=== PATIENT | male | born 1980 | race Caucasian/White ===

== ENCOUNTER 2018-01-12 12:22 | Emergency (ER) | payer SELFPAY ==
--- NOTE | 2018-01-12 13:42 | CT ---
NONCONTRAST HEAD CT: Date: 01/12/18 HISTORY: Nausea and vomiting after working outside. Hit head yesterday with masking machine. COMPARISON: 10/12/16. TECHNIQUE: Noncontrast head CT is performed from skull base to skull vertex. FINDINGS: No parenchymal hemorrhage. No extra-axial hematoma. No midline shift. Basilar cisterns are patent. Br ain volume, age-appropriate. Cortical purdy-white matter differentiation preserved. Ventricles and sul ci are patent and symmetric. Calvarium is intact. Adequate aeration of the sinuses and mastoid air ce lls. IMPRESSION: No acute intracranial process. POS: GEN
== END 2018-01-12 13:40 | disposition left against medical advice (07) ==
LOC: ERS 12:22
DX: Z53.21 Procedure and treatment not carried out due to patient leaving prior to being seen by health care provider (principal)
CPT/HCPCS: 70450

== ENCOUNTER 2018-11-17 08:54 | Inpatient (IN) | payer SELFPAY ==
[2018-11-17] MEDS ORDERED: Ondansetron PF 4 MG/2 ML Vial ONE (09:18)
[2018-11-17 09:25] LABS: #Eosinphils 0.1 thou/uL (0.0-0.7); #Monocytes 1.1 thou/uL (0.11-0.59); #Neutrophils 15.7 thou/uL (1.40-6.50); %Basophils 0.2 % (0.0-1.0); %Eosinophils 0.5 % (0.0-10.0); %Lymphocytes 10.6 % (21.0-51.0); %Monocytes 5.7 % (0.0-10.0); %Neutrophils 83.1 % (42.0-75.0); Hemoglobin 16.9 g/dL (14.0-18.0); Mean Corpuscular HGB CONC 34.1 g/dL (32.0-36.0); Mean Corpuscular Hemoglobin 31.2 pg (27.0-31.0); Mean Corpuscular Volume 91.4 fL (78.0-98.0); Mean Platelet Volume 8.2 fL (7.4-10.4); Platelet Count 254 thou/uL (130-400); RBC Distribution Width 12.7 % (11.5-14.5); Red Blood Cell (RBC) Count 5.41 mill/uL (4.70-6.10); White Blood Cell (WBC) Count 18.9 thou/uL (4.8-10.8)
[2018-11-17 09:51] LABS: ALT (SGPT) 12 U/L (8-55); AST (SGOT) 14 U/L (5-34); Albumin 5.6 g/dL (3.5-5.0); Alkaline Phosphatase 128 U/L (40-150); Anion Gap 21 mmol/L (10-20); BUN (Urea Nitrogen) 30 mg/dL (8.9-20.6); Bilirubin, Total 1.1 mg/dL (0.2-1.2); CK (CPK) 253 U/L (30-200); Calc. Creatinine Clearance 0 mL/min (70-130); Calcium 10.5 mg/dL (7.8-10.44); Carbon Dioxide 20 mmol/L (22-29); Chloride 97 mmol/L (98-107); Estimated GFR-MDRD 24; Globulin 3.8 g/dL (2.4-3.5); Glucose 117 mg/dL (70-105); Lipase 10 U/L (8-78); Potassium 3.9 mmol/L (3.5-5.1); Protein, Total 9.4 g/dL (6.0-8.3); Sodium 134 mmol/L (136-145)
[2018-11-17 10:26] LABS: Bilirubin Moderate (Negative); Blood, Urine Negative (Negative); Glucose, Urine (Dipstick) 100 mg/dL (Negative); Leukocyte Negative (Negative); Nitrite Negative (Negative); Protein, Urine (Dipstick) 100 mg/dL (Neg-Trace); Urobilinogen 0.2 mg/dL (Less than 2)
[2018-11-17 10:28] LABS: Clarity Clear (Clear)
[2018-11-17 10:32] LABS: Other Microscopic Description Less than 2 mL rec'd
[2018-11-17 10:33] LABS: Bacteria/HPF None Seen HPF (None Seen); RBC/HPF None Seen HPF (0-3); Squamous Epithelial 0-3 HPF (0-3); WBC/HPF 0-3 HPF (0-3)
[2018-11-17 10:34] LABS: Transitional Epithelial 0-3 HPF (None Seen)
[2018-11-17] MEDS ORDERED: Promethazine 25 MG TAB PO PRN (10:40)
[2018-11-17] MEDS ORDERED: Senokot S 8.6-50 MG TAB PO PRN ×2 (10:40)
[2018-11-17] MEDS ORDERED: Ondansetron PF 4 MG/2 ML Vial IVP PRN (10:40)
[2018-11-17] MEDS ORDERED: Calcium Carbonate 500 MG ChewTAB PO PRN (10:40)
[2018-11-17] MEDS ORDERED: Loratadine 10 MG TAB PO PRN (10:40)
[2018-11-17] MEDS ORDERED: hydrALAZINE 20 MG/ML VIAL SLOW IVP PRN (10:40)
[2018-11-17] MEDS ORDERED: Bisacodyl 5 MG TAB PO PRN ×2 (10:40)
[2018-11-17] MEDS ORDERED: cloNIDine 0.1 MG TAB PO PRN (10:40)
[2018-11-17] MEDS ORDERED: Sodium Chloride 0.65% Nasal 44 ML BOT EA NARE PRN (10:40)
[2018-11-17] MEDS ORDERED: Nicotine 14 MG PATCH ONE (10:56)
[2018-11-17 11:13] LABS: Amphetamine Not Detected (NotDetected); Barbiturates Screen Not Detected (NotDetected); Benzodiazepine Screen Not Detected (NotDetected); Cocaine Metabolite Screen Not Detected (NotDetected); Medtox Control Line Valid? VALID (VALID); Medtox Reader # READER 4; Methadone Not Detected (NotDetected); Methamphetamine Not Detected (NotDetected); Opiate Screen Not Detected (NotDetected); Oxycodone Screen Not Detected (NotDetected); Phencyclidine (PCP) Not Detected (NotDetected); THC/Cannabinoid Screen Detected (NotDetected); Tricyclic Screen Not Detected (NotDetected)
--- NOTE | 2018-11-17 11:55 | ULT ---
US Renal Bilateral STANDARD HISTORY: Acute renal insufficiency. COMPARISON: None. FINDINGS: Real-time imaging of the right and left kidneys were. The right kidney measures 10.6 cm, th e left kidney 11.3 cm in size. There is no evidence of cyst mass or obstruction. No cortical thinning. The bladder is incompletely distended at the time this exam. IMPRESSION: Unremarkable renal ultrasound.
[2018-11-17] MEDS: Sodium Chloride 0.9% 1,000 ML IV SCH ×2 (13:37→23:33)
[2018-11-17] MEDS ORDERED: Acetaminophen 325 MG TAB ONE (13:41)
[2018-11-17] MEDS: Acetaminophen 325 MG TAB PO PRN ×3 (13:41→20:48)
--- NOTE | 2018-11-17 14:32 | HP ---
PRIMARY CARE PHYSICIAN: None. CHIEF COMPLAINT: Vomiting, abdominal cramps, and generalized weakness. HISTORY OF PRESENTING ILLNESS: Mr. Alonso is a 37-year-old male with past medical history without any significant chronic diseases, who presented to the ER with above-mentioned complaints. History is mainly obtained by the patient himself, and electronic medical records have been reviewed. Mr. 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 Normally, he works all days and does not eat or drink much. He was doing the same yesterday also, and by the end of the day, he started to feel sick and nauseated and then started throwing out. He went home around 5 p.m. and threw up a whole lot more in the night. He felt hot and tried some intermittent cooling at the house as well. He reports that his symptoms have happened about 4 years ago about the same symptoms. He knew better this time and ate a banana, some pickle, and salt last night and went to sleep. When he woke up this morning, he was still feeling really bad and went back to work, but then promptly started to vomit again. He noticed that his bed was awfully hot. He reported sweating up until last night, but since then he has not noticed any excessive sweating. When prompted, he did say that he has not urinated more than 3 or 4 times yesterday and none this morning and noticed that his urine was awfully dark and maybe with some blood in it. He denies any recent illnesses, but later added that he had episodes of abdominal cramping and vomiting 4 days ago after eating some meat that he had left outside overnight. All of his symptoms resolved in less than 12 hours, and he had good normal 3 or 4 days before yesterday. He denies any recent drug abuse or alcohol use. Upon presentation to the emergency room, his blood pressure was 125/72, pulse of 79, his temperature was 98.1, and oxygen saturation 99% on room air. His initial workup revealed acute renal insufficiency with a creatinine of 3.00, BUN 30 with baseline creatinine normal. He was also found to have anion gap metabolic acidosis and a mild rhabdomyolysis with a CK of 253. He also has elevated WBCs at 18.9 with 83% neutrophils. His urinalysis showed proteinuria, glucosuria, mild range; some bilirubinuria; and some casts, but no bacteria, blood, or wbc's. Urine drug screen was positive only for cannabinoids. He was started on IV fluids and is now being admitted for acute renal insufficiency, likely secondary to heat exhaustion and dehydration. Interestingly, when taken a more thorough history, he reported that he has been having significant pain in his teeth and has taken an entire bottle of Advil in the 20 hours preceding his symptoms. He also noticed that he most likely has abscess of multiple teeth as he can feel the swelling and the pain, but he has no insurance to go to a dentist. PAST MEDICAL HISTORY: History of renal failure due to dehydration, heat exhaustion in 2014. PAST SURGICAL HISTORY: None, reviewed with the patient. PSYCHIATRIC HISTORY: He reports history of anxiety and depression. SOCIAL HISTORY: He is currently smoking tobacco a pack a day and drinks socially. He binge drinks once or twice a month. He currently uses marijuana, but he has used all sorts of drugs when he was 16 or 17 years of age. He does report that his last methamphetamine use was about a year ago. FAMILY HISTORY: His mother had COPD. His great grand aunt had some sort of heart disease. He is not familiar with his dad side. He denies any history of kidney problems running in his family. REVIEW OF SYSTEMS: A 14-point review of system is done and is negative except for those mentioned in history and physical. LABORATORY DATA: CBC shows WBCs 18.9, 83% neutrophils, otherwise unremarkable. Serum chemistry shows sodium 134, chloride 97, bicarb 20, anion gap 21, BUN 30, creatinine 3.0, blood sugar 117, calcium 10.5. Lipase is normal. Creatine kinase 253. Liver enzymes normal. Urinalysis as per HPI. PHYSICAL EXAMINATION: VITAL SIGNS: Most recent vital signs; blood pressure 118/64, pulse of 60, respirations 14, temperature 97.5, saturating 98% on room air. GENERAL: No acute distress. Awake, alert, and oriented x3. 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 His mucous membranes appear dry. Pupils are equal and reactive to light and accommodation. Head is normocephalic and atraumatic. NECK: Supple without any lymphadenopathy, JVD, or bruit. CHEST: Clear to auscultation without any wheezing, rales, or rhonchi. HEART: Rhythm is regular without any murmurs, rubs, or gallops. ABDOMEN: Soft, nontender, nondistended with positive bowel sounds. EXTREMITIES: Free of any cyanosis, clubbing, or edema. NEUROLOGICAL: Nonfocal. SKIN: Free of any rashes or bruises. Feels warm and dry to touch. PSYCHIATRIC: Normal affect. IMPRESSION AND PLAN: 1. Acute renal insufficiency. This is a combination of extreme dehydration along with NSAIDs. The patient has been strictly educated about the use of NSAIDs, and he is to abstain from it for an unforeseeable future. This is his 2nd or 3rd episode of acute renal failure, so we will go ahead and obtain a renal ultrasound. Nephrology has been consulted by the emergency room physician, and we will follow the recommendations. Urinalysis does have trace protein and glucose, and he has mild hyperglycemia. We will go ahead and rule out diabetes by checking a hemoglobin A1c. He denies any family history or personal history of same. We will avoid any nephrotoxic medications and follow the renal function serially. 2. Anion gap metabolic acidosis. This is secondary to acute renal insufficiency. Once again, start him on generous IV fluids and follow the labs carefully. No other cause is apparent. 3. Mild hyponatremia with hypochloremia. Once again, this is secondary to dehydration. 4. Rhabdomyolysis, mild. Continue generous IV fluids and recheck in the morning. 5. Leukocytosis, most likely systemic inflammatory response syndrome due to noninfectious causes. We will recheck in the morning. No evidence to suggest infection at this time. He did have what sounds like a gastroenteritis bout, but that was about 4 days ago. 6. Drug abuse. The patient currently is abusing marijuana, but he reports abstinence from all the other drugs of abuse. 7. Tobacco abuse. We will add nicotine patch and the patient has been counseled. DISPOSITION: Mr. Alonso will be admitted to medical floor for acute renal failure, which is multifactorial in nature. Estimated length of stay at this time is 2 to 3 midnights. Further management will depend upon his clinical course. Job ID: [id number]
[2018-11-17 14:54] LABS: Hemoglobin A1c 4.9 % (4.0-6.0)
[2018-11-17 16:10] VITALS: BMI 24.0
[2018-11-17 20:18] LABS: Creatinine, Urine 221.77 mg/dL (63-166)
[2018-11-17] MEDS: Amoxicillin/Potassium Clav 875 MG TAB PO SCH (20:48)
--- NOTE | 2018-11-17 20:53 | CON ---
DATE OF CONSULTATION: 11/17/2018 CONSULTING PHYSICIAN: Jesusita Cheema MD REASON FOR CONSULT: Acute kidney injury. REASON FOR ADMISSION: Vomiting and possibly heat exhaustion. HISTORY OF PRESENT ILLNESS: A 37-year-old male with history of acute kidney injury in the past from heat exhaustion and NSAID use who came to the hospital with not feeling well, generalized weakness, vomiting. He was working out in the heat a lot and was feeling bad with same kind of symptoms that he had in the past. Also had a few episodes of vomiting and presented to the ER and was found to have elevated creatinine. Nephrology was consulted. The patient denies any back pain or chest pain. He has been taking a few pills of NSAIDs also lately for his toothache. No chest pain or palpitation. PAST MEDICAL HISTORY: Positive for acute kidney injury and heat exhaustion. PAST SURGICAL HISTORY: None. HOME MEDICATIONS: Advil. ALLERGIES: NO KNOWN DRUG ALLERGIES. SOCIAL HISTORY: Smoking history is present and drinks socially and binge drinking . FAMILY HISTORY: Positive for COPD. REVIEW OF SYSTEMS: CONSTITUTIONAL: Negative for weight loss or gain, ability to conduct usual activities. SKIN: Negative for rash, itching. EYES: Negative for double vision, pain. ENT/MOUTH: Negative for nose bleeding, neck stiffness, pain, tenderness. CARDIOVASCULAR: Negative for palpitations, dyspnea on exertion, orthopnea. RESPIRATORY: Negative for shortness of breath, wheezing, cough, hemoptysis, fever or night sweats. GASTROINTESTINAL: Negative for poor appetite, abdominal pain, heartburn, nausea, vomiting, constipation, or diarrhea. GENITOURINARY: Negative for urgency, frequency, dysuria, nocturia. MUSCULOSKELETAL: Negative for pain, swelling. NEUROLOGIC/PSYCHIATRIC: Negative for anxiety, depression. ALLERGY/IMMUNOLOGIC: Negative for skin rash, bleeding tendency. Rest are negative review of systems. PHYSICAL EXAMINATION: GENERAL: This is a well-built male, in no apparent distress. VITAL SIGNS: Temperature 97.8, pulse . HEENT: Atraumatic, normocephalic. Oral mucosa is moist. NECK: Supple. CV: S1, S2 heard. Rate and rhythm regular. RESPIRATORY: Clear. GI: Abdomen is soft. MUSCULOSKELETAL: 1+ edema. DERMATOLOGIC: No skin rash. NEUROLOGIC: Alert and awake. PSYCHIATRIC: Normal mood and affect. LABORATORY DATA: Hemoglobin is 16.9, potassium is 3.9, BUN is 30, creatinine is 3.7. ASSESSMENT AND PLAN: 1. Acute kidney injury on chronic kidney disease stage 3, most likely from volume depletion. Renal ultrasound unremarkable. We will check for proteinuria and monitor. 2. Continue IV fluids. 3. Metabolic acidosis, high anion gap, most likely from renal disease. Continue hydration. We will monitor. 4. Mild hyponatremia. 5. Hemoconcentration. Continue IV fluids. 6. Mild proteinuria. We will check urine protein to creatinine ratio. 7. Substance abuse, counseled. 8. History of NSAIDs use, counseled to avoid using long-term use of NSAIDs and also adverse effect on renal function. 9. Avoid nephrotoxins. Continue hydration. Monitor labs. We will continue to follow. Thank you for the consult. Job ID: [id number]
[2018-11-17] MEDS ORDERED: Famotidine/PF 20 mg/2ml Vial SLOW IVP SCH (21:00)
[2018-11-17] MEDS: Heparin 5,000 UNITS/ML VIAL SC SCH (21:09)
[2018-11-18] MEDS: Acetaminophen 325 MG TAB PO PRN (02:24)
[2018-11-18] MEDS: Sodium Chloride 0.9% 1,000 ML IV SCH ×3 (02:34→11:40)
[2018-11-18 06:00] LABS: #Eosinphils 0.1 thou/uL (0.0-0.7); #Monocytes 1.1 thou/uL (0.11-0.59); #Neutrophils 10.9 thou/uL (1.40-6.50); %Basophils 0.3 % (0.0-1.0); %Eosinophils 0.5 % (0.0-10.0); %Lymphocytes 13.9 % (21.0-51.0); %Neutrophils 77.4 % (42.0-75.0); Hemoglobin 13.7 g/dL (14.0-18.0); Mean Corpuscular HGB CONC 31.2 g/dL (32.0-36.0); Mean Corpuscular Hemoglobin 29.5 pg (27.0-31.0); Mean Corpuscular Volume 94.5 fL (78.0-98.0); Mean Platelet Volume 8.7 fL (7.4-10.4); Platelet Count 211 thou/uL (130-400); RBC Distribution Width 12.6 % (11.5-14.5); Red Blood Cell (RBC) Count 4.65 mill/uL (4.70-6.10); White Blood Cell (WBC) Count 14.1 thou/uL (4.8-10.8)
[2018-11-18 06:23] LABS: Anion Gap 11 mmol/L (10-20); BUN (Urea Nitrogen) 15 mg/dL (8.9-20.6); Calc. Creatinine Clearance 121 mL/min (70-130); Calcium 9.1 mg/dL (7.8-10.44); Carbon Dioxide 24 mmol/L (22-29); Chloride 105 mmol/L (98-107); Estimated GFR-MDRD Greater than 90; Glucose 96 mg/dL (70-105); Potassium 4.1 mmol/L (3.5-5.1); Sodium 136 mmol/L (136-145)
[2018-11-18] MEDS: Heparin 5,000 UNITS/ML VIAL SC SCH (08:19)
[2018-11-18] MEDS: Amoxicillin/Potassium Clav 875 MG TAB PO SCH (08:19)
--- NOTE | 2018-11-18 13:25 | PRG ---
DATE OF SERVICE: 11/18/2018 SUBJECTIVE: Patient was seen and examined at bedside and overnight events noted. Patient denies any shortness of breath or chest pain or palpitation. No history of nausea or vomiting or diarrhea or fever or chills or cramps. OBJECTIVE: GENERAL: This is a well-built male, in no apparent distress. VITAL SIGNS: Temperature 97. Heart rate 50. Respiratory rate 16. Blood pressure 135/82. HEENT: Atraumatic, normocephalic. Oral mucosa is moist NECK: Supple. CARDIOVASCULAR: S1, S2 heard. Rate and rhythm regular. RESPIRATORY: Clear to auscultation. GASTROINTESTINAL: Abdomen is soft. MUSCULOSKELETAL: No tenderness. No edema. DERMATOLOGIC: No skin rash. NEUROLOGIC: Alert and awake and oriented X3. No focal neurologic deficits. Moving all the extremities. PSYCHIATRIC: Mood and affect normal. LABORATORY DATA: Potassium is 4.1, BUN is 15, and creatinine 0.9, ASSESSMENT AND PLAN: 1. Acute kidney injury, much better. 2. Hypovolemia. 3. Acidosis. 4. Hemoconcentration. 5. Substance abuse, counselled. 6. History of NSAID use. No significant proteinuria. 7. Labs are much better. Job ID: [id number]
[2018-11-18 15:36] VITALS: BP 134/78; TEMP 97.8
[2018-11-18] MEDS ORDERED: Famotidine/PF 20 mg/2ml Vial SLOW IVP SCH (21:00)
--- NOTE | 2018-11-19 04:17 | DIS ---
DATE OF ADMISSION: 11/17/2018 DATE OF DISCHARGE: 11/18/2018 CONSULTANTS: Dr. Rojas in Nephrology Service. FINAL DIAGNOSES AT THE TIME OF DISCHARGE: 1. Acute renal failure, prerenal, resolved. 2. Anion gap metabolic acidosis, resolved. 3. Mild hyponatremia and hypochloremia, improved. 4. Rhabdomyolysis, mild, improved. 5. Leukocytosis, improved. 6. Drug abuse positive for marijuana. 7. Dental abscesses, started on antibiotic and recommended visit with a dentist. HOSPITAL COURSE: The patient is a 37-year-old male with past medical history without any significant chronic diseases, who presented to the ER with vomiting, abdominal cramps, and generalized weakness. 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 He was not drinking much fluids, that he did not urinate much after that time. In the emergency room, his blood pressure was 125/72, pulse was 79, temperature is 98.1, and oxygen saturation was 99% on room air. His blood work showed a creatinine of 3.0, BUN was 30. He was in anion gap metabolic acidosis and mild rhabdomyolysis with CK of 253. His white count was up to 18.9 with 83% of neutrophils. Urinalysis showed proteinuria, glycosuria, mild range, some bilirubinuria and some casts, but no bacteria, blood, or wbc's. Urine drug screen was positive for cannabinoids. He was started on IV fluids and got admitted to the hospital with diagnosis of acute renal insufficiency secondary to heat exhaustion and dehydration. The patient was seen by Dr. Rojas for Nephrology evaluation and he agreed that most likely this is prerenal and this is going to get better with IV fluids and rest and this is what happened with IV fluids. His creatinine went back to normal range. He started feeling significantly better. His metabolic acidosis is gone. All his chemistry is within normal limits. His hemoglobin A1c came back at 4.9, glucose is 96, creatinine is down to 0.93 and BUN down to 15. His white count is down to 14.1. He is able to tolerate food without any problems. He is able to ambulate. He is discharged home with recommendation to stay mostly inside and avoid exposure to high temperature and drink plenty of fluids while outside. He is going to continue his regular diet. ACTIVITIES: As tolerated. MEDICATIONS AT THE TIME OF DISCHARGE: Augmentin 875 mg twice a day for additional 10 days, this is for his dental abscesses. He needs to go to the dentist to get this taken care of. He is discharged in good condition. He will have to follow up with primary doctor in a week and the discharge time is less than 30 minutes. Job ID: [id number]
== END 2018-11-18 16:25 | disposition home or self-care (01) | DRG 683 ==
LOC: ERS 08:54 → ERHOLD 11:09 → SURG A 14:36
PROVIDERS: ADMIT Internal Medicine; ATTEND Internal Medicine
DX: N17.9 Acute kidney failure, unspecified (principal); E87.2 Acidosis; M62.82 Rhabdomyolysis; E87.1 Hypo-osmolality and hyponatremia; E86.0 Dehydration; T67.5XXA Heat exhaustion, unspecified, initial encounter; F17.210 Nicotine dependence, cigarettes, uncomplicated; E87.8 Other disorders of electrolyte and fluid balance, not elsewhere classified; D72.829 Elevated white blood cell count, unspecified; F12.10 Cannabis abuse, uncomplicated; N18.3 Chronic kidney disease, stage 3 (moderate); F41.9 Anxiety disorder, unspecified; F32.9 Major depressive disorder, single episode, unspecified; E86.1 Hypovolemia; K04.7 Periapical abscess without sinus
CPT/HCPCS: 36415; 76770; 80048; 80053; 80306; 81003; 81015; 82550; 82570; 83036; 83690; 84156; 85025; J1644; J2405; S0028

== ENCOUNTER 2019-05-02 21:59 | Emergency (ER) | payer SELFPAY ==
[2019-05-02] MEDS ORDERED: HYDROcodone/Acetaminophen 5/325 mg Tablet ONE (23:21)
== END 2019-05-02 23:30 | disposition home or self-care (01) ==
LOC: ERS 21:59
DX: K04.7 Periapical abscess without sinus (principal); K03.81 Cracked tooth; K02.9 Dental caries, unspecified; F41.9 Anxiety disorder, unspecified; F32.9 Major depressive disorder, single episode, unspecified; F17.210 Nicotine dependence, cigarettes, uncomplicated
CPT/HCPCS: 99282

== ENCOUNTER 2020-09-04 11:12 | Inpatient (IN) | payer SELFPAY ==
[2020-09-04] MEDS ORDERED: Promethazine HCl 25 MG/ML VIAL ONE (12:06)
[2020-09-04 12:18] LABS: #Lymphocytes 2.4 thou/uL (1.20-3.40); #Monocytes 1.1 thou/uL (0.11-0.59); #Neutrophils 15.1 thou/uL (1.40-6.50); %Basophils 0.1 % (0.0-1.0); %Eosinophils 0.2 % (0.0-10.0); %Lymphocytes 12.9 % (21.0-51.0); %Monocytes 5.7 % (0.0-10.0); %Neutrophils 81.2 % (42.0-75.0); Hemoglobin 17.7 g/dL (14.0-18.0); Mean Corpuscular HGB CONC 33.8 g/dL (32.0-36.0); Mean Corpuscular Hemoglobin 30.5 pg (27.0-31.0); Mean Corpuscular Volume 90.1 fL (78.0-98.0); Mean Platelet Volume 8.7 fL (7.4-10.4); Platelet Count 304 thou/uL (130-400); RBC Distribution Width 13.2 % (11.5-14.5); Red Blood Cell (RBC) Count 5.82 mill/uL (4.70-6.10); White Blood Cell (WBC) Count 18.6 thou/uL (4.8-10.8)
[2020-09-04 12:34] LABS: ALT (SGPT) 43 U/L (8-55); AST (SGOT) 29 U/L (5-34); Albumin 5.8 g/dL (3.5-5.0); Alkaline Phosphatase 147 U/L (40-110); Anion Gap 32 mmol/L (10-20); BUN (Urea Nitrogen) 60 mg/dL (8.9-20.6); Bilirubin, Total 1.1 mg/dL (0.2-1.2); CK (CPK) 377 U/L (30-200); Calc. Creatinine Clearance 0 mL/min (70-130); Calcium 10.5 mg/dL (7.8-10.44); Carbon Dioxide 20 mmol/L (22-29); Chloride 86 mmol/L (98-107); Globulin 4.5 g/dL (2.4-3.5); Glucose 146 mg/dL (70-105); Lipase 22 U/L (8-78); Potassium 3.6 mmol/L (3.5-5.1); Protein, Total 10.3 g/dL (6.0-8.3); Sodium 134 mmol/L (136-145)
[2020-09-04 12:35] LABS: Band 4 % (5-11); Lymphocytes 14 % (21-51); MDiff Complete? YES; Monocytes 3 % (0-10); Neutrophil 79 % (42-75); RBC Morphology Normal
[2020-09-04 14:17] LABS: Bilirubin 1+ (Negative); Blood, Urine 2+ (Negative); Clarity Turbid (Clear); Glucose, Urine (Dipstick) Normal (Negative); Ketone, Urine Trace mg/dL (Negative); Leukocyte Negative Leu/uL (Negative); Nitrite Negative (Negative); Protein, Urine (Dipstick) 70 mg/dL (Neg-Trace); Specific Gravity, Urine 1.018 (1.002-1.036); Squamous Epithelial 0-3 HPF (0-3)
[2020-09-04 14:18] LABS: Bacteria/HPF 1+ HPF (None Seen)
[2020-09-04] MEDS ORDERED: Acetaminophen 325 MG TAB PO PRN (15:45)
[2020-09-04] MEDS ORDERED: Ondansetron PF 4 MG/2 ML Vial IVP PRN (15:45)
[2020-09-04] MEDS ORDERED: Nicotine 14 MG PATCH TD PRN (15:45)
[2020-09-04 16:27] VITALS: BMI 24.9
[2020-09-04 16:32] LABS: Medtox Reader # READER 1
[2020-09-04 16:33] LABS: Amphetamine Not Detected (NotDetected); Barbiturates Screen Not Detected (NotDetected); Benzodiazepine Screen Not Detected (NotDetected); Cocaine Metabolite Screen Not Detected (NotDetected); Medtox Control Line Valid? VALID (VALID); Methadone Not Detected (NotDetected); Methamphetamine Not Detected (NotDetected); Opiate Screen Not Detected (NotDetected); Oxycodone Screen Not Detected (NotDetected); Phencyclidine (PCP) Not Detected (NotDetected); THC/Cannabinoid Screen Detected (NotDetected); Tricyclic Screen Not Detected (NotDetected)
[2020-09-04] MEDS: Lactated Ringer's 1,000 ML IV SCH ×2 (16:44→19:41)
[2020-09-04 16:51] LABS: Creatinine, Urine 255.81 mg/dL (63-166)
[2020-09-04] MEDS: Pantoprazole 40 MG VIAL IVP SCH (19:41)
[2020-09-05 01:49] LABS: SARS-CoV-2 PCR by NAA Not Detected (NotDetected)
[2020-09-05 06:02] LABS: #Basophils 0.1 thou/uL (0.0-0.2); #Eosinphils 0.1 thou/uL (0.0-0.7); #Lymphocytes 2.2 thou/uL (1.20-3.40); #Monocytes 0.9 thou/uL (0.11-0.59); #Neutrophils 7.8 thou/uL (1.40-6.50); %Basophils 0.8 % (0.0-1.0); %Eosinophils 0.8 % (0.0-10.0); %Lymphocytes 19.6 % (21.0-51.0); %Monocytes 8.4 % (0.0-10.0); %Neutrophils 70.4 % (42.0-75.0); Hemoglobin 13.7 g/dL (14.0-18.0); Mean Corpuscular HGB CONC 33.6 g/dL (32.0-36.0); Mean Corpuscular Hemoglobin 30.9 pg (27.0-31.0); Mean Corpuscular Volume 92.1 fL (78.0-98.0); Mean Platelet Volume 8.7 fL (7.4-10.4); Platelet Count 208 thou/uL (130-400); RBC Distribution Width 12.8 % (11.5-14.5); Red Blood Cell (RBC) Count 4.42 mill/uL (4.70-6.10); White Blood Cell (WBC) Count 11.1 thou/uL (4.8-10.8)
[2020-09-05 06:13] LABS: Anion Gap 13 mmol/L (10-20); BUN (Urea Nitrogen) 32 mg/dL (8.9-20.6); Calc. Creatinine Clearance 99 mL/min (70-130); Calcium 8.3 mg/dL (7.8-10.44); Carbon Dioxide 25 mmol/L (22-29); Chloride 101 mmol/L (98-107); Glucose 93 mg/dL (70-105); Potassium 3.4 mmol/L (3.5-5.1); Sodium 136 mmol/L (136-145)
[2020-09-05] MEDS ORDERED: Lactated Ringer's 1,000 ML IV SCH (08:30)
[2020-09-05] MEDS: Pantoprazole 40 MG VIAL IVP SCH (08:34)
[2020-09-05 11:05] VITALS: BP 126/70; TEMP 98.5
== END 2020-09-05 12:02 | disposition home or self-care (01) | DRG 682 ==
LOC: ERS 11:12 → SURG A 14:43
PROVIDERS: ADMIT Family Medicine; ATTEND Family Medicine
DX: N17.9 Acute kidney failure, unspecified (principal); K22.6 Gastro-esophageal laceration-hemorrhage syndrome; R82.71 Bacteriuria; F12.10 Cannabis abuse, uncomplicated; F10.10 Alcohol abuse, uncomplicated; F17.220 Nicotine dependence, chewing tobacco, uncomplicated; E86.0 Dehydration; Z20.822 Contact with and (suspected) exposure to COVID-19; Z87.442 Personal history of urinary calculi; Z82.0 Family history of epilepsy and other diseases of the nervous system; Z82.49 Family history of ischemic heart disease and other diseases of the circulatory system; Z83.6 Family history of other diseases of the respiratory system
CPT/HCPCS: 36415; 71045; 74176; 80048; 80053; 80306; 80307; 81003; 81015; 82550; 82570; 83605; 83690; 84145; 84300; 85025; 87086; 87635; 93005; 93010; 96365; C9113; J2550; U0003; U0005

== ENCOUNTER 2021-09-09 18:39 | Emergency (ER) | payer SELFPAY ==
[2021-09-09 19:59] LABS: #Basophils 0.1 thou/uL (0.0-0.2); #Eosinphils 0.4 thou/uL (0.0-0.7); #Lymphocytes 3.2 thou/uL (1.20-3.40); #Monocytes 0.6 thou/uL (0.11-0.59); #Neutrophils 4.1 thou/uL (1.40-6.50); %Basophils 1.1 % (0.0-1.0); %Eosinophils 4.6 % (0.0-10.0); %Neutrophils 49.3 % (42.0-75.0); Hemoglobin 15.8 g/dL (14.0-18.0); Mean Corpuscular HGB CONC 33.8 g/dL (32.0-36.0); Mean Corpuscular Hemoglobin 32.1 pg (27.0-31.0); Mean Corpuscular Volume 95.1 fL (78.0-98.0); Mean Platelet Volume 7.9 fL (7.4-10.4); Platelet Count 238 thou/uL (130-400); RBC Distribution Width 12.5 % (11.5-14.5); Red Blood Cell (RBC) Count 4.91 mill/uL (4.70-6.10); White Blood Cell (WBC) Count 8.4 thou/uL (4.8-10.8)
[2021-09-09 20:26] LABS: Troponin I Less than 0.010 ng/mL (< 0.028)
[2021-09-09 20:50] LABS: ALT (SGPT) 16 U/L (8-55); AST (SGOT) 16 U/L (5-34); Albumin 4.7 g/dL (3.5-5.0); Alkaline Phosphatase 135 U/L (40-110); Anion Gap 14 mmol/L (10-20); BUN (Urea Nitrogen) 16 mg/dL (8.9-20.6); Bilirubin, Total 0.5 mg/dL (0.2-1.2); CK (CPK) 143 U/L (30-200); Calc. Creatinine Clearance 0 mL/min (70-130); Calcium 9.2 mg/dL (7.8-10.44); Carbon Dioxide 23 mmol/L (22-29); Chloride 101 mmol/L (98-107); Globulin 3.3 g/dL (2.4-3.5); Glucose 99 mg/dL (70-105); Magnesium 2.2 mg/dL (1.6-2.6); Potassium 4.3 mmol/L (3.5-5.1); Sodium 134 mmol/L (136-145)
[2021-09-09 22:04] LABS: Bacteria/HPF None Seen HPF (None Seen); Bilirubin Negative (Negative); Blood, Urine Trace (Negative); Clarity Clear (Clear); Glucose, Urine (Dipstick) Normal (Negative); Ketone, Urine Negative (Negative); Leukocyte Negative Leu/uL (Negative); Mucous/LPF 1+ LPF (<2+); Nitrite Negative (Negative); Protein, Urine (Dipstick) 20 mg/dL (Neg-Trace); RBC/HPF 0-3 HPF (0-3); Specific Gravity, Urine 1.034 (1.002-1.036); Squamous Epithelial 0-3 HPF (0-3); WBC/HPF 0-3 HPF (0-3); pH, Urine 5.5 (5.0-9.0)
== END 2021-09-09 22:27 | disposition home or self-care (01) ==
LOC: ERS 18:39
DX: T67.5XXA Heat exhaustion, unspecified, initial encounter (principal); R31.9 Hematuria, unspecified; F17.210 Nicotine dependence, cigarettes, uncomplicated
CPT/HCPCS: 80053; 81001; 82550; 83735; 84484; 85025; 99284

== ENCOUNTER 2022-03-16 05:57 | Emergency (ER) | payer SELFPAY ==
[2022-03-16] MEDS ORDERED: Ondansetron ODT 4 MG TAB ONE (07:12)
[2022-03-16] MEDS ORDERED: Ibuprofen 800 MG TAB ONE (07:13)
== END 2022-03-16 07:15 | disposition home or self-care (01) ==
LOC: ERS 05:57
DX: K02.9 Dental caries, unspecified (principal); F17.210 Nicotine dependence, cigarettes, uncomplicated
CPT/HCPCS: 99282; Q0162

== ENCOUNTER 2023-01-13 22:37 | Observation (INO) | payer SELFPAY ==
[2023-01-14 00:31] LABS: ALT (SGPT) 12 U/L (8-55); AST (SGOT) 15 U/L (5-34); Albumin 5.3 g/dL (3.5-5.0); Alkaline Phosphatase 113 U/L (40-110); Anion Gap 23 mmol/L (10-20); BUN (Urea Nitrogen) 53 mg/dL (8.9-20.6); Bilirubin, Total 0.9 mg/dL (0.2-1.2); Calc. Creatinine Clearance 0 mL/min (70-130); Calcium 9.6 mg/dL (7.8-10.44); Carbon Dioxide 19 mmol/L (22-29); Chloride 96 mmol/L (98-107); Estimated GFR 18; Globulin 3.6 g/dL (2.4-3.5); Glucose 113 mg/dL (70-105); Potassium 4.3 mmol/L (3.5-5.1); Protein, Total 8.9 g/dL (6.0-8.3); Sodium 134 mmol/L (136-145)
[2023-01-14] MEDS ORDERED: cefTRIAXone (ROCEPHIN) 2 GM VIAL ONE (02:08)
[2023-01-14] MEDS ORDERED: Nicotine 14 MG PATCH ONE (02:09)
[2023-01-14 05:46] LABS: Bacteria/HPF None Seen HPF (None Seen); Bilirubin Negative (Negative); Blood, Urine 1+ (Negative); CAUTI Indications for Culture Dysuria,urgency,freq; Clarity Clear (Clear); Glucose, Urine (Dipstick) 30 mg/dL (Negative); Ketone, Urine 40 mg/dL (Negative); Leukocyte Negative Leu/uL (Negative); Nitrite Negative (Negative); Protein, Urine (Dipstick) 30 mg/dL (Neg-Trace); RBC/HPF 0-3 HPF (0-3); Squamous Epithelial 0-3 HPF (0-3); Urobilinogen Normal mg/dL (Less than 2); WBC/HPF 0-3 HPF (0-3)
[2023-01-14 05:48] LABS: Urine Culture Reflex No No
[2023-01-14] MEDS ORDERED: Sodium Chloride 0.9% 1,000 ML IV SCH (06:00)
[2023-01-14 06:13] VITALS: BMI 23.8
[2023-01-14] MEDS ORDERED: HYDROcodone/Acetaminophen 5/325 mg Tablet PO PRN (07:34)
[2023-01-14] MEDS ORDERED: Acetaminophen 325 MG TAB PO PRN (07:34)
[2023-01-14] MEDS ORDERED: Senokot S 8.6-50 MG TAB PO PRN (07:34)
[2023-01-14] MEDS ORDERED: Ondansetron PF 4 MG/2 ML Vial IVP PRN (07:34)
[2023-01-14] MEDS: Famotidine 20 MG TAB PO SCH (09:35)
[2023-01-14] MEDS: Sodium Chloride 0.9% 1,000 ML IV SCH ×3 (09:40→22:35)
[2023-01-14 10:03] LABS: Anion Gap 12 mmol/L (10-20); BUN (Urea Nitrogen) 45 mg/dL (8.9-20.6); CK (CPK) 302 U/L (30-200); Calc. Creatinine Clearance 52 mL/min (70-130); Calcium 8.4 mg/dL (7.8-10.44); Carbon Dioxide 23 mmol/L (22-29); Chloride 100 mmol/L (98-107); Estimated GFR 41; Glucose 113 mg/dL (70-105); Potassium 3.3 mmol/L (3.5-5.1); Sodium 132 mmol/L (136-145)
[2023-01-14 14:44] LABS: Magnesium 2.4 mg/dL (1.6-2.6)
[2023-01-14 15:24] LABS: Chlam.trachomatis by PCR,Urine Not Detected (NotDetected); GC N.gonorrhoeae PCR,UrineVOID Not Detected (NotDetected)
[2023-01-15 06:35] LABS: #Eosinphils 0.1 thou/uL (0.0-0.7); #Monocytes 0.6 thou/uL (0.11-0.59); #Neutrophils 4.6 thou/uL (1.40-6.50); %Basophils 0.3 % (0.0-1.0); %Eosinophils 0.7 % (0.0-10.0); %Lymphocytes 26.9 % (21.0-51.0); %Monocytes 8.1 % (0.0-10.0); %Neutrophils 63.7 % (42.0-75.0); Hematocrit 34.9 % (42.0-52.0); Hemoglobin 11.8 g/dL (14.0-18.0); Mean Corpuscular HGB CONC 33.8 g/dL (32.0-36.0); Mean Corpuscular Hemoglobin 30.9 pg (27.0-31.0); Mean Corpuscular Volume 91.4 fl (78.0-98.0); Mean Platelet Volume 10.6 fL (7.4-10.4); Platelet Count 155 10x3/uL (130-400); RBC Distribution Width 13.9 % (11.5-14.5); Red Blood Cell (RBC) Count 3.82 mill/uL (4.70-6.10); White Blood Cell (WBC) Count 7.3 10x3/uL (4.8-10.8)
[2023-01-15 07:17] LABS: ALT (SGPT) 9 U/L (8-55); AST (SGOT) 10 U/L (5-34); Albumin 3.6 g/dL (3.5-5.0); Alkaline Phosphatase 83 U/L (40-110); Anion Gap 8 mmol/L (10-20); BUN (Urea Nitrogen) 24 mg/dL (8.9-20.6); Bilirubin, Total 0.6 mg/dL (0.2-1.2); Calc. Creatinine Clearance 121 mL/min (70-130); Calcium 8.3 mg/dL (7.8-10.44); Carbon Dioxide 25 mmol/L (22-29); Chloride 109 mmol/L (98-107); Estimated GFR 111; Globulin 2.3 g/dL (2.4-3.5); Glucose 96 mg/dL (70-105); Potassium 3.8 mmol/L (3.5-5.1); Protein, Total 5.9 g/dL (6.0-8.3); Sodium 138 mmol/L (136-145)
[2023-01-15 08:14] VITALS: BP 112/61; TEMP 98
[2023-01-15] MEDS: Famotidine 20 MG TAB PO SCH (09:09)
== END 2023-01-15 11:12 | disposition home or self-care (01) ==
LOC: ERS 23:05 → ERHOLD 01-14 03:27 → SURG A 01-14 05:40
PROVIDERS: ADMIT Internal Medicine; ATTEND Hospitalist
DX: R11.2 Nausea with vomiting, unspecified (principal); F17.210 Nicotine dependence, cigarettes, uncomplicated; F12.90 Cannabis use, unspecified, uncomplicated; T67.5XXA Heat exhaustion, unspecified, initial encounter; N17.9 Acute kidney failure, unspecified; R74.8 Abnormal levels of other serum enzymes; Z79.899 Other long term (current) drug therapy
CPT/HCPCS: 36415; 74176; 80048; 80053; 81001; 82550; 83735; 85025; 87086; 87491; 87591; G0378; J0696; J7050